=== PATIENT | male | born 2000 | race Caucasian/White ===

== ENCOUNTER 2020-10-13 22:41 | Emergency (ER) | payer OTHER ==
[2020-10-13 22:51] VITALS: BP 144/90; PULSE 100; TEMP 98.6; BMI 13.9
== END 2020-10-14 00:35 | disposition home or self-care (01) ==
LOC: JER 22:41
DX: S82.831A Other fracture of upper and lower end of right fibula, initial encounter for closed fracture (principal)
CPT/HCPCS: 73590-TC-RT-FY; 73610-TC-RT-FY; 73630-TC-RT-FY; 99285-25

== ENCOUNTER → 2023-04-25 | Day surgery (SDC) | payer OTHER ==
[2023-04-22 14:09] VITALS: BMI 32.3
[~2023-04-25] MED LIST: BACITRACIN ZINC 15 GM TUBE TOPICAL OINTMENT ONE; BUPIVACAINE HCL/PF 0.5% (5MG/ML) 10 ML VIAL ONE; LIDOCAINE HCL 1%, 10 MG/ML (10ML VIAL) MDV ONE
== END | disposition home or self-care (01) ==
LOC: JASU-SURG 04:42
PROVIDERS: ATTEND Urology
DX: Z53.8 Procedure and treatment not carried out for other reasons (principal)